=== PATIENT | male | born 1945 | race Two or more races ===

== ENCOUNTER 2020-12-22 14:10 | Emergency (ER) | payer OTHER ==
[~2020-12-22] VITALS: Ht 154.9 cm; Wt 66.8 kg
[2020-12-22 14:44] VITALS: BP 120/68
[2020-12-22] MEDS ORDERED: LORA10TA7 PO (16:41)
[2020-12-22] MEDS ORDERED: BENZ-16 PO (16:41)
== END 2020-12-22 16:46 | disposition home or self-care (01) ==
LOC: ER 14:10
DX: R05 Cough (principal); J02.9 Acute pharyngitis, unspecified; Z79.899 Other long term (current) drug therapy
CPT/HCPCS: 99283